=== PATIENT | male | born 1985 | race Caucasian/White ===

== ENCOUNTER 2022-10-09 11:06 | Inpatient (IN) | payer BC ==
[~2022-10-09] VITALS: Ht 175.3 cm; Wt 104.5 kg
[~2022-10-09 11:06] MED LIST: CEPHALEXIN500 M1 PO
[2022-10-09 14:24] LABS: BASO % 0.3 % (0.0-2.0); EOS % 0.3 % (0.0-4.0); GRAN # 11.2 K/mm3 (1.4-6.5); GRAN % 80.7 % (42.2-75.2); HEMATOCRIT 44.3 % (42.0-52.0); HEMOGLOBIN 14.7 g/dl (13.5-18.0); LYMPH # 1.6 K/mm3 (1.2-3.4); LYMPH % 11.2 % (20.0-51.0); MEAN CELL VOLUME 89 fl (80.0-100.0); MEAN CORPUSCULAR HEMOGLOBIN 30 pg (27-31); MEAN CORPUSCULAR HGB CONC 33 g/dl (33.0-37.0); MEAN PLATELET VOLUME 9.8 fl (7.4-10.4); MONO # 0.9 K/mm3 (0.1-0.6); MONO % 6.8 % (1.7-9.3); PLATELET COUNT 240 K/mm3 (130-400); RED BLOOD COUNT 4.98 M/mm3 (4.20-5.60); REDCELL DISTRIBUTION WIDTH-CV 12.5 % (11.5-14.5)
[2022-10-09 14:51] LABS: ERYTHROCYTE SEDIMENTATION RATE 85 mm/hr (0-15)
[2022-10-09] MEDS ORDERED: DOXYCYCLINE 10100 MG PO (17:25)
--- NOTE | 2022-10-09 17:39 | NUR ---
Pt admitted to unit from ED. Pt is a/o x 4. Independent in room. Patrick wrap to left elbow CDI. Afebrile during admission (Temp 98.4F). IV Vanc infusing to right AC site w/o sx of inflitration. Pt denies pain/discomfort at this time. Discussed NPO status w/ the pt who verbalized understanding. Valuables denied by the pt. Orientation provided to room/call light system. Pt denies additional needs at this time. Call light is in his reach
[2022-10-09 17:46] VITALS: TEMP 98.4
--- NOTE | 2022-10-09 18:25 | NUR ---
Pt wondering if he can eat dinner. Call placed to Dr. Steiner and received a verbal order that it is okay for pt to eat. General diet order placed
[2022-10-09 19:44] VITALS: BP 130/63; PULSE 93; TEMP 98.5
--- NOTE | 2022-10-09 21:00 | NUR ---
Patient A/Ox4, head to toe assessment done, see shift assessment, denies pain or discomfort, dressing to left elbow clean, dry and intact, denies further needs, call light and personal items within reach, will continue to monitor.
[2022-10-09 23:03] VITALS: BP 107/52; PULSE 83; TEMP 99.2
--- NOTE | 2022-10-10 00:20 | NUR ---
Patient watching movie on his laptop, denies further need at this time.
[2022-10-10 03:17] VITALS: BP 128/63; PULSE 86; TEMP 99.7
--- NOTE | 2022-10-10 03:25 | NUR ---
Patient's temperature is 99.7, tylenol given, denies pain or discomfort.
--- NOTE | 2022-10-10 06:44 | NUR ---
Shift report received from sliver machine operator RN.
--- NOTE | 2022-10-10 06:45 | NUR ---
Pt resting supine in bed; aroused easily from sleep. LUE leelee wrap/dressing is CDI. IV abx infusing to rt. AC site w/o sx of infiltration. He denies pain/discomfort or other needs. Call light is in his reach
[2022-10-10 07:22] LABS: BASO % 0.4 % (0.0-2.0); EOS # 0.1 K/mm3 (0.0-0.7); EOS % 0.6 % (0.0-4.0); GRAN # 7.8 K/mm3 (1.4-6.5); GRAN % 71.5 % (42.2-75.2); HEMATOCRIT 38.1 % (42.0-52.0); LYMPH # 2.1 K/mm3 (1.2-3.4); LYMPH % 18.8 % (20.0-51.0); MEAN CELL VOLUME 88 fl (80.0-100.0); MEAN CORPUSCULAR HEMOGLOBIN 29 pg (27-31); MEAN CORPUSCULAR HGB CONC 33 g/dl (33.0-37.0); MEAN PLATELET VOLUME 10.3 fl (7.4-10.4); MONO # 0.9 K/mm3 (0.1-0.6); MONO % 8.3 % (1.7-9.3); PLATELET COUNT 213 K/mm3 (130-400); RED BLOOD COUNT 4.34 M/mm3 (4.20-5.60); REDCELL DISTRIBUTION WIDTH-CV 12.2 % (11.5-14.5)
[2022-10-10 07:27] LABS: HEMOGLOBIN 12.6 g/dl (13.5-18.0)
[2022-10-10 07:44] VITALS: BP 110/51; PULSE 66; TEMP 98.9
[2022-10-10 07:53] LABS: CALCIUM 8.7 mg/dL (8.4-10.2); CREATININE, serum 0.93 mg/dL (0.72-1.25); POTASSIUM 3.9 mmol/L (3.5-4.5)
--- NOTE | 2022-10-10 09:03 | NUR ---
Pt resting supine in bed with HOB slightly elevated. Pt feels that his patrick wrap is too tight, swelling noted above and below the patrick wrap. Patrick wrap removed, loosened slightly, and reapplied. Discussed w/ pt keeping LUE elevated on pillow. IV abx infusing to rt. ac w/o sx of infiltration. Pt denies pain, discomfort, nausea. He denies additional needs. Call light is in his reach.
--- NOTE | 2022-10-10 09:12 | NUR ---
IV abx should be completed in next 1-2 hrs. Discussed w/ pt that he may shower but will need the LUE leelee wrap/dressing covered before showering. Pt will call when/if he would like to take a shower today. Hygiene/bathing items placed in room.
--- NOTE | 2022-10-10 10:54 | NUR ---
Mysql Developer met with patient to discuss discharge planning. Patient was recently admitted to this hospital on 09/29/22-10/01/22 for cellulitis. Patient lives in [place] with his spouse, Edel (ph#[phone]) who is at bedside. Patient was set up with primary care physician, Dr. Kirt Stahl at time of discharge and advised he had an appointment with Dr. Stahl in between hospitalizations. Patient stated at his appointment, he had labs drawn, then was sent back to the hospital here. [facility] and advised he had no difficulty picking up medications when he was discharged from the hospital previously. Patient does not have DPOA-HC. Patient is normally independent with ADLS and is employed. Discharge Plan: Home
--- NOTE | 2022-10-10 11:30 | NUR ---
Pt resting in bed with HOB slightly elevated. is at the bedsidel. LUE swelling has improved. Pt continues to elevate the LUE on a pillow. He reports mild wrist pain but denies the need for pain medication right now. He denies additional needs. Call light is in his reach.
[2022-10-10 12:27] VITALS: BP 132/68; PULSE 79; TEMP 98
[2022-10-10 15:54] VITALS: BP 118/57; PULSE 80; TEMP 98.4
--- NOTE | 2022-10-10 18:02 | NUR ---
Pt sitting up in bed visiting with his family on the phone. IV abx completed; next IV abx started per order. Swelling noted earlier from patrick wrap is improved. Patrick wrap to LUE remains CDI. Pt denies pain or discomfort. Left wrist pain is better. Pt denies additional needs. Call light is in his reach.
[2022-10-10 20:03] VITALS: BP 133/59; PULSE 86; TEMP 98.7
--- NOTE | 2022-10-10 21:00 | NUR ---
Patient doing fine, A/O, head to toe assessment done, see shift assessment, denies pain or discomfort, denies further needs, call light and personal items within reach, will continue to monitor.
[2022-10-10 23:40] VITALS: BP 132/56; PULSE 72; TEMP 98.7
[2022-10-11 03:41] VITALS: BP 114/52; PULSE 81; TEMP 98.7
[2022-10-11 06:42] LABS: BASO % 0.3 % (0.0-2.0); EOS # 0.1 K/mm3 (0.0-0.7); EOS % 0.6 % (0.0-4.0); GRAN # 6.9 K/mm3 (1.4-6.5); GRAN % 72.4 % (42.2-75.2); HEMOGLOBIN 12.3 g/dl (13.5-18.0); LYMPH # 1.8 K/mm3 (1.2-3.4); LYMPH % 18.4 % (20.0-51.0); MEAN CELL VOLUME 86 fl (80.0-100.0); MEAN CORPUSCULAR HEMOGLOBIN 29 pg (27-31); MEAN CORPUSCULAR HGB CONC 33 g/dl (33.0-37.0); MEAN PLATELET VOLUME 10.4 fl (7.4-10.4); MONO # 0.7 K/mm3 (0.1-0.6); MONO % 7.8 % (1.7-9.3); PLATELET COUNT 210 K/mm3 (130-400); RED BLOOD COUNT 4.26 M/mm3 (4.20-5.60); REDCELL DISTRIBUTION WIDTH-CV 12.2 % (11.5-14.5)
[2022-10-11 06:43] LABS: HEMATOCRIT 36.8 % (42.0-52.0)
[2022-10-11 06:57] LABS: CALCIUM 8.8 mg/dL (8.4-10.2); CREATININE, serum 1.01 mg/dL (0.72-1.25); POTASSIUM 4.1 mmol/L (3.5-4.5)
[2022-10-11 07:15] VITALS: BP 121/66; PULSE 70; TEMP 98.5
--- NOTE | 2022-10-11 07:20 | NUR ---
Shift report received from the night nurse, PAULETTE Lubin
--- NOTE | 2022-10-11 09:17 | NUR ---
Patient in a sitting position in bed alert and oriented x4. Patrick wrap dressing to left elbow intact, no drainage noted on dressing. IVF antibiotic infusing without difficulty. Patient denies pain at this time. See process intervention for notes.
--- NOTE | 2022-10-11 09:53 | NUR ---
0640 Report recieved from Primary nurse Nicole at this time. Discussed plan of care and care coordination [facility], Student RN.
--- NOTE | 2022-10-11 09:55 | NUR ---
0720 Assessment completed (see Shift Assessment). Patient denies pain at this time. Discussed plan of care, patient agreeable. All questions answered. Call light within reach. Will continue to monitor.
[2022-10-11 11:30] VITALS: BP 133/77; PULSE 79; TEMP 98.1
--- NOTE | 2022-10-11 13:34 | NUR ---
Patient did not eat lunch from the hosptial, stating that his spouse will bring him lunch. Patient is not in any distress.
--- NOTE | 2022-10-11 14:25 | NUR ---
Patient scheduled telehealth visit with Dr. Sewell, Infectious Disease. Pt consents to visit. PTs was present in the room. Equipment set up, audio and video connections established. Visit conducted by . No technical concerns or issues.
--- NOTE | 2022-10-11 15:04 | NUR ---
Dr. Steiner at the bedside at 1448 performing I & D of the left elbow. Patient c/o pain at the affected site and requests for pain medication. Roxicode administered at 1501. Will reassess pain level and monitor left elbow dressing. Family at the bedside. Call adamson within reach.
[2022-10-11 16:06] VITALS: BP 136/64; PULSE 80; TEMP 98.3
--- NOTE | 2022-10-11 18:45 | NUR ---
engineering technical writer at the bedside drawing blood for vanco trough at 1840. Patient denies needs at this time.
[2022-10-11 19:31] VITALS: BP 143/71; PULSE 70; TEMP 98.5
[2022-10-11 23:35] VITALS: BP 140/72; PULSE 69; TEMP 98.6
--- NOTE | 2022-10-11 23:55 | NUR ---
Pt watching TV when entered his room for shift assessment around 2144. A&O x4. Pt reports some discomfort, and pain med was requested around 2225, and second dose repeated 2325. Left arm has dressing and leelee wrap around elbow, which are CDI. Vanco trough back and lab result notified to [facility] around 2100 to request antibiotic dose to be readjusted. RAC INT is CDI. Belongings and call light are within reach.
[2022-10-12 03:30] VITALS: BP 134/65; PULSE 51; TEMP 98.2
[2022-10-12 06:30] LABS: BASO % 0.4 % (0.0-2.0); EOS # 0.1 K/mm3 (0.0-0.7); GRAN # 4.7 K/mm3 (1.4-6.5); GRAN % 63.6 % (42.2-75.2); HEMATOCRIT 37.2 % (42.0-52.0); HEMOGLOBIN 12.4 g/dl (13.5-18.0); LYMPH # 1.9 K/mm3 (1.2-3.4); LYMPH % 26.3 % (20.0-51.0); MEAN CELL VOLUME 87 fl (80.0-100.0); MEAN CORPUSCULAR HEMOGLOBIN 29 pg (27-31); MEAN CORPUSCULAR HGB CONC 33 g/dl (33.0-37.0); MEAN PLATELET VOLUME 10.6 fl (7.4-10.4); MONO # 0.6 K/mm3 (0.1-0.6); PLATELET COUNT 204 K/mm3 (130-400); RED BLOOD COUNT 4.27 M/mm3 (4.20-5.60); REDCELL DISTRIBUTION WIDTH-CV 12.2 % (11.5-14.5)
[2022-10-12 06:42] LABS: CALCIUM 8.5 mg/dL (8.4-10.2); CREATININE, serum 1.07 mg/dL (0.72-1.25); POTASSIUM 3.9 mmol/L (3.5-4.5)
--- NOTE | 2022-10-12 07:51 | NUR ---
Received shift report from the night nurse, Kelin Jaimes LPN
[2022-10-12 08:00] VITALS: BP 119/62; PULSE 69; TEMP 97.8
--- NOTE | 2022-10-12 10:04 | NUR ---
Patient sitting up in bed using Ipad . Patrick wrap dressing at left elbow dry and intact from the I & D. Patient denies discomfort at this time. Will continue to monitor patient.
[2022-10-12 11:51] VITALS: BP 141/72; PULSE 72; TEMP 97.7
[2022-10-12] MEDS ORDERED: DOXYCYCLINE 10100 MG PO (13:36)
[2022-10-12] MEDS ORDERED: ROXICODONE 55 MG/TAB PO (13:39)
--- NOTE | 2022-10-12 14:56 | NUR ---
Discharge instruction and education given, patient verbalized understanding and has no other question. Patient is inform to call Chaparrita Cheung' office on Friday for appointment time scheduled on 10/21/22. INT discontinued. Patient escorted to the ER entrance.
== END 2022-10-12 14:44 | disposition home or self-care (01) | DRG 558 ==
LOC: COL.ER 11:06 → SURG 15:22
PROVIDERS: Emergency Medicine; Physician Assistant; ADMIT Internal Medicine
PROC: 0M943ZX Drainage of Left Elbow Bursa and Ligament, Percutaneous Approach, Diagnostic (ICD-10-PCS; principal; 2022-10-12)
DX: M70.22 Olecranon bursitis, left elbow (principal); L03.114 Cellulitis of left upper limb; B95.0 Streptococcus, group A, as the cause of diseases classified elsewhere; F10.90 Alcohol use, unspecified, uncomplicated
CPT/HCPCS: J2543; J3370; J7040